=== PATIENT | female | born 1970 | race Caucasian/White ===

== ENCOUNTER 2018-12-27 22:03 | Emergency (ER) | payer BC ==
[~2018-12-27] VITALS: Ht 152.4 cm; Wt 104.3 kg
[2018-12-27 22:21] VITALS: BP_SYST 148
--- NOTE | 2018-12-27 22:57 | NUR ---
Patient to ER bed 07 to gown for evaluation. Side rails up. Report given to MYLENE RANDALL
--- NOTE | 2018-12-27 23:05 | NUR ---
Patient AOx4, ambulatory, presents to ER with complaint of left lower back pain radiating to left thigh 5/10 after lifting boxes. Patient states "I can't sleep because it hurts so much". No other symtptoms or complaints.
--- NOTE | 2018-12-27 23:48 | NUR ---
GEORGINA RIVAS Kwaw at bedside for medical evaluation.
[2018-12-28] MEDS ORDERED: KETOROLAC TROMETHAMINE 60 MG/2 ML VIAL IM ONE
[2018-12-28 00:47] VITALS: BP_SYST 132
--- NOTE | 2018-12-28 00:47 | NUR ---
Patient given written and verbal discharge instructions and verbalizes understanding. ER MD discussed with patient the results and treatment provided. Patient in stable condition. ID arm band removed. Rx of Naprosyn and Zolpidem given. Patient educated on pain management and to follow up with PMD. Pain Scale 2/10 tolerable to patient. Opportunity for questions provided and answered. Medication side effect fact sheet provided.
== END 2018-12-28 00:47 | disposition home or self-care (01) ==
LOC: SED 22:03
DX: S33.9XXA Sprain of unspecified parts of lumbar spine and pelvis, initial encounter (principal); R03.0 Elevated blood-pressure reading, without diagnosis of hypertension; X58.XXXA Exposure to other specified factors, initial encounter; Y93.89 Activity, other specified; Y92.89 Other specified places as the place of occurrence of the external cause; Y99.8 Other external cause status
CPT/HCPCS: 96372; 99283; J1885